=== PATIENT | male | born 1970 | race Caucasian/White ===

== ENCOUNTER 2016-07-25 11:23 | Day surgery (SDC) | payer OTHER ==
[~2016-07-25] VITALS: Ht 167.6 cm; Wt 88.8 kg
[2016-07-25] VITALS (10 sets, daily range): BP systolic 117–153; BP diastolic 76–99; PULSE 73–81; RESP 9–20; O2SAT 90–99
[~2016-07-25 11:23] MED LIST: ASPI-973 PO; CeFAZolin Inj 2 GM in IV Premix 1 EACH IV ONE; HMLG7525I SUBQ; INSU100V7 SUBQ; METO10TA3 PO; PRAV40TA PO
[2016-07-25] MEDS ORDERED: Propofol 10,000 mCg/mL 20 mL Inj ONE (11:24)
[2016-07-25] MEDS ORDERED: fentaNYL-PF 50 mCg/mL 2 mL Inj ONE (11:24)
[2016-07-25] MEDS ORDERED: CeFAZolin Inj 2 gm / 50mL D5W IV ONE (11:44)
[2016-07-25] MEDS ORDERED: HYDROcodone-APAP 5-325 mg Tablet PO PRN (11:55)
[2016-07-25] MEDS ORDERED: Ketorolac 15 mg/mL Inj IVPUSH ONE (11:55)
[2016-07-25] MEDS: Lactated Ringer's 1,000 ML IV SCH ×2 (11:58→12:28)
--- NOTE | 2016-07-25 12:07 | PCM.ORTHOP ---
Orthopedic Operative Report Date of Service: Jul 25, 2016 Pre Operative Diagnosis left shoulder adhesive capsulitis Post Operative Diagnosis Left shoulder adhesive capsulitis Procedure left shoulder manipulation under anesthesia, arthroscopic lysis of adhesions Surgeon Surgeon: Eligio Garcia MD Assistants: Vasu Torres Indication for Procedure left shoulder adhesive capsulitis Findings per dictation Details of Procedure TRAINING MANAGER SURGEON: During the operation, the services of physician surgical garment assembly supervisor were medically indicated and necessary to provide exposure of the operative site for the surgical procedure and to maintain the limb in a proper position to carry out the operation safely and efficiently. Without the qualified oceanographer assistant being present, it would have extended the operative procedure and made the procedure technically more difficult to perform. INDICATIONS: The patient is Biju Brush is a 38-year-old male with history of diabetes who has developed adhesive capsulitis of the left shoulder. X-rays show the glenohumeral joint to be well maintained. The risks, benefits, and alternatives of surgery were discussed with the patient. The risks included but were not limited to infection, bleeding, damage to vessels and nerves, loss of motion, continued pain, complications due to anesthesia including myocardial infarction, stroke, , etc. The patient stated understanding of the nature of the surgical procedure and gave written and verbal consent to proceed. PROCEDURE: The patient was brought into the operating room and placed supine on the operating room table. A supraclavicular block was placed in the left shoulder for postoperative pain management, followed by the administration of general anesthesia. Preoperative antibiotic(s) was(ere) given The patient was then placed into the lateral decubitus position with the affected side up. An axillary role was placed and the legs were padded as necessary to avoid pressure points. The patient was maintained in position with a beanbag evacuation device. A thorough examination of the left shoulder under anesthesia was performed. The patient had 70 degrees of forward elevation and 50 degrees of abduction. In 90 degrees of abduction the patient had 0 degrees of external rotation and 0 degrees of internal rotation. The affected shoulder was then examined for stability. A manipulation under with resultant 135 of forward flexion, 110 of abduction, 70 of external rotation, 60 of internal rotation. The affected upper extremity was then prepped and draped in the usual fashion. The arm was suspended with a well-padded sleeve with eight pounds of balanced suspension in the arthroscopic position. A standard posterior portal was made inferior and medial to the posterior corner of the acromion. The incision was made only through skin. The trocar was advanced through the soft tissue with a blunt-tipped obturator. This was inserted into the glenohumeral joint without difficulty. The arthroscope was placed through the cannula and attached to the video monitor system. Inflow was achieved using the arthroscopic pump. The pressure was maintained at 35-40 mm of mercury throughout the entire procedure. Once the arthroscope confirmed visualization within the shoulder joint, it was advanced anteriorly into the rotator interval beneath the biceps tendon. A Wissinger jeniffer was then used to create the anterior portal from inside-out. A second anterior stab wound incision was made only through skin and an anterior cannula was placed. A routine arthroscopic survey was begun Survey: A severely contracted inferior capsule as well as glenohumeral ligaments were noted. Complex surgical procedure: This was an extremely complex surgical procedure which took approximately 30-40% longer to complete than a standard repair. Without the use of a qualified personal assistant, this surgical procedure would have taken even considerably longer and been unable to be performed arthroscopically A lysis of adhesions was performed circumferential lysis of ligament and capsule circumferentially around the glenoid between the junction superficial to the labrum and capsule/glenohumeral ligaments. Closure: The arm was then taken out of traction. The instability both in neutral rotation and in abduction external rotation was eliminated. The humeral head was well centralized. The arthroscope was then used to visualize the repair both from the anterior superior viewing portal and the posterior viewing portal which showed the humeral head to be well balanced with excellent and appropriate tissue tension. The glenohumeral joint was then copiously irrigated with an additional liter of lactated Ringers solution and excess fluid was drained. The arthroscopic portals were closed with #4-0 nylon and Steri-Strips. A dry sterile dressing was applied, followed by a neutral rotation sling. The patient was awakened in the Operating Room and transported to the Recovery Room in satisfactory condition. The patient appeared to tolerate the procedure well. There were no complications noted. Grafts, Implants: None Complications There were no periprocedural complications identified. Condition Stable Anesthetic Administered: GA Catheters: None Output, Estimated Blood Loss: 5 Blood Admin during surgery: No Surgical Cast or Splint: Shoulder Immobilizer, Other Surgical Specimen Removed: No Specimen sent to Pathology: No copies to: Eligio Garcia MD, Christopher L MD Jul 25, 2016 12:06 Eligio Garcia MD Jul 25, 2016 12:06
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
[2016-07-25] MEDS ORDERED: Lactated Ringer's 1,000 ML IV SCH (12:53)
[2016-07-25] MEDS ORDERED: Lactated Ringer's 500 ML IV PRN (12:53)
[2016-07-25] MEDS ORDERED: MetoCLOpramide 5 mg/mL 2 mL Inj IVPUSH PRN (12:55)
[2016-07-25] MEDS ORDERED: Phenylephrine 10,000 mCg/mL Inj IVPUSH PRN (12:55)
[2016-07-25] MEDS ORDERED: Ondansetron 2 mg/mL 2 mL Inj IVPUSH PRN (12:55)
[2016-07-25] MEDS ORDERED: fentaNYL-PF 50 mCg/mL 2 mL Inj IVPUSH PRN (12:55)
[2016-07-25] MEDS ORDERED: HYDROmorphone 1 mg/mL Inj IVPUSH PRN (12:55)
[2016-07-25] MEDS ORDERED: EPHEDrine Sulfate 50 mg/mL Inj IVPUSH PRN (12:55)
[2016-07-25] MEDS ORDERED: hydrALAZINE 20 mg/mL Inj IVPUSH PRN (12:55)
[2016-07-25] MEDS ORDERED: Labetalol 5 mg/mL 4 mL Inj IV PRN (12:55)
[2016-07-25] MEDS ORDERED: Atropine 0.4 mg/mL Inj IVPUSH PRN (12:55)
[2016-07-25] MEDS ORDERED: Ropivacaine-PF 0.5% 30 mL Inj INFILTRATE ONE (13:26)
--- NOTE | 2016-07-25 13:37 | PCM.ANEP1 ---
Post Anesthesia Phase 1 PACU Phase 1 Assessment Date of Service: Jul 25, 2016 Vital Signs 36.3 157/100 92 10 92% RA Anesthetic Administered: GA Level of Alertness: Sleepy, easy to arouse URBNA's with Equal Strength: Yes Pain: No Nausea or Vomiting: No Oxygen Delivery: Room Air Lungs: Clear to Auscultation, Normal Air Movement Tobi Lee MD Jul 25, 2016 13:37
--- NOTE | 2016-07-25 14:47 | PCM.ANEP2 ---
Post Anesthesia Evaluation ASA/CMS Post Anesthesia Date of Service: Jul 25, 2016 VS in Patient's Normal Range?: Yes Resp Stable; Airway Patent?: Yes CV Function & Hydration Stable: Yes Mental Status Recovered?: Yes Pain control Satisfactory?: Yes N/V Control Satisfactory?: Yes Tobi Lee MD Jul 25, 2016 14:47
== END 2016-07-25 23:59 | disposition home or self-care (01) ==
LOC: SAS 11:23
PROVIDERS: ATTEND Orthopaedic Surgery
DX: M75.02 Adhesive capsulitis of left shoulder (principal); E10.8 Type 1 diabetes mellitus with unspecified complications; Z79.4 Long term (current) use of insulin; F10.20 Alcohol dependence, uncomplicated; F32.9 Major depressive disorder, single episode, unspecified; F17.210 Nicotine dependence, cigarettes, uncomplicated; Z79.82 Long term (current) use of aspirin
CPT/HCPCS: 29825; 76942; J0690; J1885; J2250; J2795; J3010; J7120